=== PATIENT | female | born 1970 | race Caucasian/White ===

== ENCOUNTER 2017-02-18 10:40 | Emergency (ER) | payer MEDICAID, OTHER ==
[~2017-02-18] VITALS: Ht 160 cm; Wt 56.8 kg
[~2017-02-18 10:40] MED LIST: BACL10TA PO; LABE100 PO; PARO10TA89 PO
[2017-02-18 11:54] LABS: BASOPHILS % (AUTO) 0.7 % (0.0-2.0); EOSINOPHILS % (AUTO) 0.3 % (1.0-6.0); HEMATOCRIT 41.6 % (36-46); HEMOGLOBIN 13.5 g/dL (12.0-16.0); LYMPHOCYTES # (AUTO) 2.8 K/uL (1.0-4.8); LYMPHOCYTES % (AUTO) 30.3 % (22.0-44.0); MEAN CORPUSCULAR HEMOGLOBIN 25.7 pg (26.0-34.0); MEAN CORPUSCULAR HGB CONC 32.5 G/dL (31.0-37.0); MEAN CORPUSCULAR VOLUME 79 fL (80-100); MONOCYTES # (AUTO) 0.9 K/uL (0.1-1.0); MONOCYTES % (AUTO) 9.6 % (2.0-9.0); NEUTROPHILS # (AUTO) 5.5 K/uL (1.8-7.7); NEUTROPHILS % (AUTO) 59.1 % (40.0-70.0); PLATELET COUNT (AUTO) 367 K/uL (150-450); RED BLOOD CELL COUNT(AUTO) 5.25 MIL/uL (4.00-5.20); WHITE BLOOD COUNT (AUTO) 9.4 K/uL (4.5-11.0)
[2017-02-18] MEDS ORDERED: ALPRAZolam 0.25 MG TABLET PO ONE (12:00)
[2017-02-18] MEDS ORDERED: METOPROLOL TARTRATE 50 MG TABLET PO ONE (12:15)
[2017-02-18 12:28] LABS: ANION GAP 10 mmol/L (8-16); CALCIUM, TOTAL 8.7 mg/dL (8.8-10.5); CARBON DIOXIDE 27 mmol/L (22-29); CHLORIDE 102 mmol/L (98-107); CREATININE 0.69 mg/dL (0.60-1.30); GLOMERULAR FILTR. RATE CALC > 60 mL/min (>60); POTASSIUM 3.6 mmol/L (3.5-5.1); SODIUM SERUM 139 mmol/L (136-145); UREA NITROGEN, BLOOD 16 mg/dL (7-18)
[2017-02-18 12:33] LABS: ALANINE AMINOTRANSFERASE 17 U/L (12-78); ALBUMIN 4.2 g/dL (3.4-5.0); ASPARTATE AMINOTRANSFERASE 18 U/L (15-37); BILIRUBIN,TOTAL 0.4 mg/dL (0.1-1.0)
[2017-02-18 16:27] VITALS: BP 146/99
== END 2017-02-18 18:03 | disposition home or self-care (01) ==
LOC: EMS 10:41
DX: F41.9 Anxiety disorder, unspecified (principal); I10 Essential (primary) hypertension; F11.10 Opioid abuse, uncomplicated; F12.10 Cannabis abuse, uncomplicated; F15.10 Other stimulant abuse, uncomplicated; Z88.5 Allergy status to narcotic agent
CPT/HCPCS: 36415; 80053; 80307; 85025; 99284; G0480

== ENCOUNTER 2017-02-18 18:42 | Emergency (ER) | payer OTHER | END 2017-02-18 20:21 | disposition left against medical advice (07) | LOC: EMS 18:54 | DX: R45.851 Suicidal ideations (principal); Z53.21 Procedure and treatment not carried out due to patient leaving prior to being seen by health care provider ==

== ENCOUNTER 2017-02-18 21:18 | Inpatient (IN) | payer MEDICAID, OTHER ==
[~2017-02-18] VITALS: Ht 160 cm; Wt 57.2 kg
[2017-02-18 22:05] LABS: BASOPHILS % (AUTO) 0.8 % (0.0-2.0); EOSINOPHILS % (AUTO) 1.7 % (1.0-6.0); HEMATOCRIT 39.6 % (36-46); HEMOGLOBIN 12.9 g/dL (12.0-16.0); LYMPHOCYTES # (AUTO) 2.7 K/uL (1.0-4.8); LYMPHOCYTES % (AUTO) 28.5 % (22.0-44.0); MEAN CORPUSCULAR HEMOGLOBIN 25.8 pg (26.0-34.0); MEAN CORPUSCULAR HGB CONC 32.5 G/dL (31.0-37.0); MEAN CORPUSCULAR VOLUME 79 fL (80-100); MONOCYTES # (AUTO) 0.9 K/uL (0.1-1.0); MONOCYTES % (AUTO) 9.4 % (2.0-9.0); NEUTROPHILS # (AUTO) 5.6 K/uL (1.8-7.7); NEUTROPHILS % (AUTO) 59.6 % (40.0-70.0); PLATELET COUNT (AUTO) 355 K/uL (150-450); RED BLOOD CELL COUNT(AUTO) 4.99 MIL/uL (4.00-5.20); RED CELL DISTRIBUTION WIDTH 17.1 % (11.5-14.5); WHITE BLOOD COUNT (AUTO) 9.3 K/uL (4.5-11.0)
[2017-02-18 22:06] LABS: RBC MORPHOLOGY COMMENT ABNORMAL RBC MORPH
[2017-02-18 22:14] LABS: ANION GAP 12 mmol/L (8-16); CALCIUM, TOTAL 8.4 mg/dL (8.8-10.5); CARBON DIOXIDE 25 mmol/L (22-29); CHLORIDE 103 mmol/L (98-107); CREATININE 0.88 mg/dL (0.60-1.30); GLOMERULAR FILTR. RATE CALC > 60 mL/min (>60); POTASSIUM 3.9 mmol/L (3.5-5.1); SODIUM SERUM 140 mmol/L (136-145); UREA NITROGEN, BLOOD 21 mg/dL (7-18)
[2017-02-18 22:19] LABS: ALANINE AMINOTRANSFERASE 9 U/L (12-78); ALBUMIN 3.6 g/dL (3.4-5.0); ASPARTATE AMINOTRANSFERASE 17 U/L (15-37); BILIRUBIN,TOTAL 0.3 mg/dL (0.1-1.0); TOTAL PROTEIN, SERUM 7.5 g/dL (6.4-8.2)
[2017-02-19] VITALS (8 sets, daily range): BP systolic 130–147; BP diastolic 64–101
[2017-02-19] MEDS ORDERED: ZOLPIDEM TARTRATE 10 MG TABLET PO PRN (00:15)
[2017-02-19] MEDS ORDERED: ACETAMINOPHEN 500 MG TABLET PO ONE (00:30)
[2017-02-19] MEDS ORDERED: INFLUENZA VIRUS VACCINE QVS 2016-17 (3YR+)/PF 60 MCG/0.5 ML SYRINGE IM ONE (02:15)
[2017-02-19] MEDS: LORazepam 2 MG TABLET PO PRN ×2 (11:09→16:45)
[2017-02-19] MEDS: HALOPERIDOL 5 MG TABLET PO PRN ×2 (11:09→16:45)
[2017-02-19] MEDS ORDERED: PROMETHAZINE HCL 25 MG/ML VIAL IM PRN (13:30)
[2017-02-19] MEDS ORDERED: IBUPROFEN 600 MG TABLET PO PRN (13:30)
[2017-02-19] MEDS ORDERED: MAG HYDROX/AL HYDROX/SIMETH ES 30 ML SUSPENSION UDCUP PO PRN (13:30)
[2017-02-19] MEDS ORDERED: HydrOXYzine PAMOATE 50 MG CAPSULE PO PRN (13:30)
[2017-02-19] MEDS: CloNIDine HCL 0.1 MG TABLET PO SCH ×2 (16:39→21:01)
[2017-02-19] MEDS ORDERED: ACETAMINOPHEN 325 MG TABLET PO PRN (23:00)
[2017-02-20] VITALS (7 sets, daily range): BP systolic 121–138; BP diastolic 80–100
[2017-02-20] MEDS: CloNIDine HCL 0.1 MG TABLET PO SCH ×4 (06:12→22:25)
[2017-02-20] MEDS: LORazepam 2 MG TABLET PO PRN ×2 (06:24→12:50)
[2017-02-20 08:25] LABS: CHOL/HDL RATIO 2.1 (3.9-5.7); THYROID STIMULATING HORMONE 0.67 uIU/mL (0.36-3.74)
[2017-02-20 08:49] LABS: HEMOGLOBIN A1C 5.6 % (4.5-6.2)
[2017-02-20] MEDS: PARoxetine HCL 10 MG TABLET PO SCH (08:56)
[2017-02-20] MEDS: CETIRIZINE HCL 10 MG TABLET PO SCH (11:19)
[2017-02-20] MEDS: FLUTICASONE PROPIONATE 50 MCG/SPRAY 16 GM NASAL SPRAY NASAL SCH ×2 (11:19→17:55)
[2017-02-20] MEDS: TraZODone HCL 100 MG TABLET PO SCH ×2 (12:50→17:55)
[2017-02-20] MEDS: CloNIDine HCL 0.1 MG TABLET PO PRN (13:19)
[2017-02-21 00:46] VITALS: BP 161/107
[2017-02-21] MEDS: CloNIDine HCL 0.1 MG TABLET PO PRN ×2 (00:49→12:59)
[2017-02-21] MEDS: IBUPROFEN 400 MG TABLET PO PRN ×2 (00:52→09:55)
[2017-02-21 01:46] VITALS: BP 138/86
[2017-02-21] MEDS: CloNIDine HCL 0.1 MG TABLET PO SCH ×4 (05:27→21:25)
[2017-02-21] MEDS: LORazepam 2 MG TABLET PO PRN ×3 (05:27→16:15)
[2017-02-21] MEDS: TraZODone HCL 100 MG TABLET PO SCH ×2 (09:00→09:54)
[2017-02-21] MEDS: CETIRIZINE HCL 10 MG TABLET PO SCH (09:54)
[2017-02-21] MEDS: PARoxetine HCL 10 MG TABLET PO SCH (09:54)
[2017-02-21 09:55] VITALS: BP 123/85
[2017-02-21] MEDS: FLUTICASONE PROPIONATE 50 MCG/SPRAY 16 GM NASAL SPRAY NASAL SCH ×2 (09:57→16:17)
[2017-02-21 17:00] VITALS: BP 158/100
[2017-02-21] MEDS: HALOPERIDOL 5 MG TABLET PO PRN (19:11)
[2017-02-21 20:03] VITALS: BP 132/87
[2017-02-21] MEDS ORDERED: TraZODone HCL 100 MG TABLET PO SCH (21:00)
[2017-02-22] MEDS: LORazepam 2 MG TABLET PO PRN ×4 (05:29→14:39)
[2017-02-22] MEDS: CloNIDine HCL 0.1 MG TABLET PO SCH ×2 (06:06→13:13)
[2017-02-22 06:52] VITALS: BP 118/89
[2017-02-22 06:53] VITALS: BP 118/89
[2017-02-22] MEDS ORDERED: PARO10TA89 PO (08:41)
[2017-02-22] MEDS ORDERED: FLUT16H NASAL (08:41)
[2017-02-22] MEDS ORDERED: TRAZ-147 PO (08:41)
[2017-02-22] MEDS ORDERED: CETI-260 PO (08:41)
[2017-02-22] MEDS: CETIRIZINE HCL 10 MG TABLET PO SCH (08:57)
[2017-02-22] MEDS: PARoxetine HCL 10 MG TABLET PO SCH (08:58)
[2017-02-22] MEDS: FLUTICASONE PROPIONATE 50 MCG/SPRAY 16 GM NASAL SPRAY NASAL SCH (08:58)
[2017-02-22 09:25] VITALS: BP 134/81
[2017-02-22 09:28] VITALS: BP 134/81
[2017-02-22] MEDS: HALOPERIDOL 5 MG TABLET PO PRN (09:59)
[2017-02-22] MEDS: IBUPROFEN 400 MG TABLET PO PRN (10:00)
== END 2017-02-22 15:20 | disposition home or self-care (01) | DRG 754 ==
LOC: EMS 21:26 → 3EI 02-19 00:15
PROVIDERS: ADMIT Psychiatry & Neurology Psychiatry; ATTEND Psychiatry & Neurology Psychiatry
DX: F32.9 Major depressive disorder, single episode, unspecified (principal); R45.851 Suicidal ideations; I10 Essential (primary) hypertension; F41.9 Anxiety disorder, unspecified; I51.9 Heart disease, unspecified; G89.29 Other chronic pain; R10.9 Unspecified abdominal pain; F15.90 Other stimulant use, unspecified, uncomplicated; F12.90 Cannabis use, unspecified, uncomplicated; R73.9 Hyperglycemia, unspecified; M54.9 Dorsalgia, unspecified; G43.909 Migraine, unspecified, not intractable, without status migrainosus; Z90.721 Acquired absence of ovaries, unilateral; Z98.51 Tubal ligation status; Z90.49 Acquired absence of other specified parts of digestive tract; Z88.5 Allergy status to narcotic agent; Z98.890 Other specified postprocedural states; Z59.0 Homelessness; Z28.21 Immunization not carried out because of patient refusal
CPT/HCPCS: 83036; 84443; 99285; G0480; J2550

== ENCOUNTER 2018-06-19 12:08 | Emergency (ER) | payer MEDICAID, OTHER ==
[~2018-06-19] VITALS: Ht 160 cm; Wt 59.1 kg
[~2018-06-19 12:08] MED LIST changes: -BACL10TA PO; +CETI-290 PO; +FLUT16H NASAL; -LABE100 PO; +TRAZ-220 PO
[2018-06-19 12:42] LABS: BASOPHILS % (AUTO) 0.8 % (0.0-2.0); EOSINOPHILS % (AUTO) 0.8 % (1.0-6.0); HEMATOCRIT 38.6 % (36-46); HEMOGLOBIN 12.6 g/dL (12.0-16.0); LYMPHOCYTES # (AUTO) 4.3 K/uL (1.0-4.8); LYMPHOCYTES % (AUTO) 47.5 % (22.0-44.0); MEAN CORPUSCULAR HGB CONC 32.7 G/dL (31.0-37.0); MEAN CORPUSCULAR VOLUME 77 fL (80-100); MONOCYTES # (AUTO) 0.5 K/uL (0.1-1.0); NEUTROPHILS % (AUTO) 44.9 % (40.0-70.0); PLATELET COUNT (AUTO) 273 K/uL (150-450); RED BLOOD CELL COUNT(AUTO) 5.04 MIL/uL (4.00-5.20); RED CELL DISTRIBUTION WIDTH 16.7 % (11.5-14.5)
[2018-06-19 12:53] LABS: ANION GAP 9 mmol/L (8-16); CALCIUM, TOTAL 8.6 mg/dL (8.8-10.5); CARBON DIOXIDE 27 mmol/L (22-29); CHLORIDE 105 mmol/L (98-107); CREATININE 0.79 mg/dL (0.60-1.30); GLOMERULAR FILTR. RATE CALC > 60 mL/min (>60); GLUCOSE,RANDOM 81 mg/dL (70-110); POTASSIUM 3.8 mmol/L (3.5-5.1); SODIUM SERUM 141 mmol/L (136-145); UREA NITROGEN, BLOOD 7 mg/dL (7-18)
[2018-06-19 12:58] LABS: ALANINE AMINOTRANSFERASE 17 U/L (12-78); ALBUMIN 3.5 g/dL (3.4-5.0); ALKALINE PHOSPHATASE 60 U/L (46-116); ASPARTATE AMINOTRANSFERASE 14 U/L (15-37); BILIRUBIN,TOTAL 0.3 mg/dL (0.1-1.0); TOTAL PROTEIN, SERUM 6.8 g/dL (6.4-8.2)
[2018-06-19 13:27] LABS: AMPHET/METH SCREEN,URINE NEGATIVE (NEGATIVE); BARBITURATE SCREEN, URINE NEGATIVE (NEGATIVE); BENZODIAZEPINES SCREEN,URINE POSITIVE (NEGATIVE); CANNABINOID SCREEN,URINE POSITIVE (NEGATIVE); COCAINE SCREEN,URINE NEGATIVE (NEGATIVE); METHADONE SCREEN, URINE NEGATIVE (NEGATIVE); OPIATE SCREEN,URINE POSITIVE (NEGATIVE)
[2018-06-19 13:30] LABS: PHENCYCLIDINE SCREEN,URINE NEGATIVE (NEGATIVE)
[2018-06-19 14:10] VITALS: BP 160/108
[2018-06-19] MEDS ORDERED: LORazepam 1 MG TABLET PO ONE (14:30)
== END 2018-06-19 14:26 | disposition home or self-care (01) ==
LOC: EMS 12:10
DX: F41.9 Anxiety disorder, unspecified (principal); F32.9 Major depressive disorder, single episode, unspecified; I11.9 Hypertensive heart disease without heart failure; F12.90 Cannabis use, unspecified, uncomplicated; F19.90 Other psychoactive substance use, unspecified, uncomplicated; G89.29 Other chronic pain; Z59.0 Homelessness; Z88.5 Allergy status to narcotic agent
CPT/HCPCS: 36415; 80053; 80307; 85025; 99284; G0480

== ENCOUNTER 2018-11-13 12:53 | Emergency (ER) | payer MEDICAID, OTHER ==
[~2018-11-13] VITALS: Ht 160 cm; Wt 47.7 kg
[2018-11-13] MEDS ORDERED: LORA1TAB3 PO (13:33)
[2018-11-13 15:34] LABS: BASOPHILS % (AUTO) 0.9 % (0.0-2.0); EOSINOPHILS % (AUTO) 2.2 % (1.0-6.0); HEMATOCRIT 40.5 % (36-46); HEMOGLOBIN 13.1 g/dL (12.0-16.0); LYMPHOCYTES # (AUTO) 3.3 K/uL (1.0-4.8); LYMPHOCYTES % (AUTO) 47.4 % (22.0-44.0); MEAN CORPUSCULAR HEMOGLOBIN 26.4 pg (26.0-34.0); MEAN CORPUSCULAR HGB CONC 32.4 G/dL (31.0-37.0); MEAN CORPUSCULAR VOLUME 81 fL (80-100); MONOCYTES # (AUTO) 0.4 K/uL (0.1-1.0); MONOCYTES % (AUTO) 6.5 % (2.0-9.0); PLATELET COUNT (AUTO) 293 K/uL (150-450); RED BLOOD CELL COUNT(AUTO) 4.97 MIL/uL (4.00-5.20); RED CELL DISTRIBUTION WIDTH 15.2 % (11.5-14.5)
[2018-11-13 15:40] LABS: ANION GAP 7 mmol/L (8-16); CALCIUM, TOTAL 8.8 mg/dL (8.8-10.5); CARBON DIOXIDE 31 mmol/L (22-29); CHLORIDE 103 mmol/L (98-107); CREATININE 0.65 mg/dL (0.60-1.30); GLOMERULAR FILTR. RATE CALC > 60 mL/min (>60); GLUCOSE,RANDOM 89 mg/dL (70-110); POTASSIUM 4.3 mmol/L (3.5-5.1); SODIUM SERUM 141 mmol/L (136-145); UREA NITROGEN, BLOOD 8 mg/dL (7-18)
[2018-11-13 15:49] LABS: ALANINE AMINOTRANSFERASE 51 U/L (12-78); ALBUMIN 3.9 g/dL (3.4-5.0); ALKALINE PHOSPHATASE 63 U/L (46-116); ASPARTATE AMINOTRANSFERASE 20 U/L (15-37); BILIRUBIN,TOTAL 0.4 mg/dL (0.1-1.0); TOTAL PROTEIN, SERUM 7.2 g/dL (6.4-8.2)
[2018-11-13] MEDS ORDERED: BusPIRone HCL 5 MG TABLET PO ONE (16:30)
[2018-11-13] MEDS ORDERED: PARoxetine HCL 20 MG TABLET PO ONE (16:30)
[2018-11-13 16:45] VITALS: BP 102/68
[2018-11-13] MEDS ORDERED: LORazepam 1 MG TABLET PO ONE (16:45)
[2018-11-13] MEDS ORDERED: TRAZ-219 PO (16:47)
[2018-11-13] MEDS ORDERED: PARO20TA24 PO (16:47)
== END 2018-11-13 17:00 | disposition home or self-care (01) ==
LOC: EMS 12:53
DX: F41.9 Anxiety disorder, unspecified (principal); I11.9 Hypertensive heart disease without heart failure; G89.29 Other chronic pain; F12.90 Cannabis use, unspecified, uncomplicated; F19.90 Other psychoactive substance use, unspecified, uncomplicated; Z90.49 Acquired absence of other specified parts of digestive tract; Z90.710 Acquired absence of both cervix and uterus; Z90.721 Acquired absence of ovaries, unilateral
CPT/HCPCS: 36415; 80053; 85025; 99284; G0480